=== PATIENT | male | born 1960 | race African-American/Black ===

== ENCOUNTER → 2016-06-19 | Outpatient (CLI) | payer OTHER ==
--- NOTE | 2016-06-19 17:01 | RAD ---
PA and lateral chest radiographs 06/19/2016 Clinical history: Shortness of breath. PA and lateral digital radiographs of the chest were obtained. Comparison study is dated 07/14/2009. The cardiac silhouette is normal in size. The thoracic aorta is mildly tortuous. Patchy areas scarring are seen involving the right lower lobe. No acute pulmonary infiltrate is seen. No pleural effusion or pneumothorax is noted. Minimal S shaped curvature of the thoracic lumbar spine is seen. Mild degenerative changes are seen involving the thoracic spine. Impression: No acute pulmonary infiltrate is seen.
== END | disposition home or self-care (01) ==
LOC: RAD 11:25
PROVIDERS: ATTEND Surgery
DX: M41.85 Other forms of scoliosis, thoracolumbar region (principal); R06.02 Shortness of breath
CPT/HCPCS: 71020